=== PATIENT | female | born 1955 | race African-American/Black ===

== ENCOUNTER 2018-12-02 04:04 | Emergency (ER) | payer BC ==
--- NOTE | 2018-12-02 04:51 | XR ---
EXAM: XR Right Hip With Pelvis When Performed, 1 View CLINICAL HISTORY: pain TECHNIQUE: Frontal view of the right hip, with pelvis when performed. COMPARISON: No relevant prior studies available. FINDINGS: Bones/joints: Unremarkable. No acute fracture. No dislocation. Soft tissues: Unremarkable. IMPRESSION: No radiographic evidence of acute fracture or dislocation.
[2018-12-02] MEDS ORDERED: MORPHINE SULFATE 4 MG/ML SYRINGE IM STA (05:38)
[2018-12-02 06:46] VITALS: TEMP 98.1
--- NOTE | 2018-12-02 07:00 | XR ---
EXAM: XR Right Knee, 3 views CLINICAL HISTORY: pain TECHNIQUE: Three views of the right knee. COMPARISON: No relevant prior studies available. FINDINGS: Bones/joints: Unremarkable. No acute fracture. No dislocation. Soft tissues: Unremarkable. IMPRESSION: No radiographic evidence of acute fracture or dislocation. No significant arthritic changes.
--- NOTE | 2018-12-02 07:02 | XR ---
EXAM: XR Pelvis, 1 or 2 Views CLINICAL HISTORY: pain TECHNIQUE: Frontal view of the pelvis. COMPARISON: No relevant prior studies available. FINDINGS: Bones/joints: Degenerative changes in the lower lumbar spine. No acute fracture. No dislocation. Soft tissues: Pelvic calcifications are consistent with phleboliths. IMPRESSION: No acute fracture or dislocation.
--- NOTE | 2018-12-02 07:02 | XR ---
EXAM: XR Right Femur, 2 Views CLINICAL HISTORY: pain TECHNIQUE: Frontal and lateral views of the right femur. COMPARISON: No relevant prior studies available. FINDINGS: Bones/joints: Unremarkable. No acute fracture. No dislocation. Soft tissues: Unremarkable. IMPRESSION: No radiographic evidence of acute fracture.
--- NOTE | 2018-12-02 07:57 | ED ---
Lower Extremity Injury HPI - General Chief Complaint: Extremity Injury, Lower Stated Complaint: hip pain Time Seen by Provider: 12/02/18 04:10 Source: patient Mode of arrival: ambulatory Limitations: no limitations - History of Present Illness Initial Comments: The patient is a 63-year-old female who presents emergency Department with reported right thigh pain. She states the pain has been present for the past week. States it is worse with movement and better with rest. It is described as a sharp shooting sensation which radiates from the lateral aspect of her right hip down to the mid thigh. Denies any numbness or tingling in her lower extremities. Denies any weakness in her lower extremities. 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 She did see Dr. Jones in office who provided her with meloxicam. States she took it once it didn't help. She is not taking any other medications. She denies any fevers or chills. No blunt trauma to the area. Has been able to weight bear. Denies any lumbar back pain. No saddle anesthesia or bowel or bladder incontinence. There are no alleviating, precipitating or modifying factors - Related Data Previous Rx's Medication Instructions Recorded Hydrocodone/Acetaminophen [Almo 1 tab PO Q4HR PRN #18 tab 12/02/18 5-325] Allergies Allergy/AdvReac Type Severity Reaction Status Date / Time No Known Allergies Allergy Verified 12/02/18 07:58 Review of Systems ROS Statement: Those systems with pertinent positive or pertinent negative responses have been documented in the HPI. ROS Other: All systems not noted in ROS Statement are negative. Past Medical History Past Medical History: Hyperlipidemia History of Any Multi-Drug Resistant Organisms: None Reported Past Surgical History: Cholecystectomy, Hysterectomy Past Psychological History: No Psychological Hx Reported Smoking Status: Never smoker Past Alcohol Use History: Occasional Past Drug Use History: None Reported General Exam Limitations: no limitations General appearance: alert, in no apparent distress Head exam: Present: atraumatic, normocephalic, normal inspection Eye exam: Present: normal appearance, PERRL, EOMI. Absent: scleral icterus, conjunctival injection, periorbital swelling ENT exam: Present: normal exam, mucous membranes moist Neck exam: Present: normal inspection. Absent: tenderness, meningismus, lymphadenopathy Respiratory exam: Present: normal lung sounds bilaterally. Absent: respiratory distress, wheezes, rales, rhonchi, stridor Cardiovascular Exam: Present: regular rate, normal rhythm, normal heart sounds. Absent: systolic murmur, diastolic murmur, rubs, gallop, clicks GI/Abdominal exam: Present: soft, normal bowel sounds. Absent: distended, tenderness, guarding, rebound, rigid Extremities exam: Present: normal inspection, full ROM, tenderness (lateral thigh from hip to lateral knee), normal capillary refill, other (5/5 muscle strength in the bilateral lower extremities). Absent: pedal edema, joint swelling, calf tenderness Back exam: Present: normal inspection Neurological exam: Present: alert, oriented X3, CN II-XII intact Psychiatric exam: Present: normal affect, normal mood Skin exam: Present: warm, dry, intact, normal color. Absent: rash Course Vital Signs 12/02/18 12/02/18 12/02/18 04:06 06:40 08:15 Temperature 97.9 F 98.1 F Pulse Rate 84 67 69 Respiratory 18 16 18 Rate Blood Pressure 100/55 105/64 125/79 O2 Sat by Pulse 99 97 98 Oximetry Medical Decision Making - Medical Decision Making Upon arrival the patient is placed into room 10. A history and physical exam was performed. I did provide the patient with 4 mg of IM morphine. The patient is sent over for an x-ray of her pelvis, right hip, right femur and right knee. Upon return of the results I did discuss with the patient. No fracture seen at this time. The patient is able to weight bear. Reports that her pain is 2 out of 10. I did discuss diagnosis, differential and treatment options. I did recommend that the patient follow up with her primary care physician for further treatment options. The patient was be given follow up information for the orthopedic physician on-call. The patient is requesting something stronger for pain at home. I will provide her with a short course of Almo. She does sign an opiate start talking form. If she has any new or worsening symptoms she should return to the emergency room. The patient was discharged home in stable condition Disposition Clinical Impression: Thigh pain Disposition: HOME SELF-CARE Condition: Stable Instructions (If sedation given, give patient instructions): Leg Pain (ED) Additional Instructions: Please follow-up with her primary care doctor within 2-4 days. Return to the emergency room for any new or worsening symptoms. You may need to see an warehouse specialist Prescriptions: Hydrocodone/Acetaminophen [Almo 5-325] 1 tab PO Q4HR PRN #18 tab PRN Reason: Pain Is patient prescribed a controlled substance at d/c from ED?: Yes When asked, does pt state using other controlled substances?: No If prescribed controlled substance>3 days was MAPS reviewed?: Prescribed <3 Days If opioid is for acute pain is fill amount 7 days or less?: Yes If Rx opioid, was Start Talking consent form obtained?: Yes Referrals: Kaden Jones MD [Primary Care Provider] - 1-2 days Escobar Mancia DO [Doctor of Osteopathic Medicine] - 1-2 days Time of Disposition: 07:57
[2018-12-02 08:24] VITALS: BP 125/79; PULSE 69; RESP 18
== END 2018-12-02 08:15 | disposition home or self-care (01) ==
LOC: EC 04:04
DX: M79.651 Pain in right thigh (principal); E78.5 Hyperlipidemia, unspecified
CPT/HCPCS: 99283; 96372; 72170; 73502; 73552; 73562; J2270

== ENCOUNTER 2020-06-05 16:01 | Emergency (ER) | payer BC ==
[2020-06-05 16:15] VITALS: TEMP 99.5
[2020-06-05 19:56] LABS: Basophils % (A) 0 %; Eosinophils % (A) 0 %; HCT 37.8 % (34.0-46.0); HGB 11.9 gm/dL (11.4-16.0); Lymphocytes # (A) 1.1 k/uL (1.0-4.8); Lymphocytes % (A) 16 %; MCH 27.6 pg (25.0-35.0); MCHC 31.4 g/dL (31.0-37.0); MCV 87.8 fL (80.0-100.0); Mean Platelet Volume 6.7; Monocytes # (A) 0.2 k/uL (0-1.0); Monocytes % (A) 3 %; Neutrophils # (A) 5.5 k/uL (1.3-7.7); Neutrophils % (A) 80 %; Platelet Count 416 k/uL (150-450); RBC 4.31 m/uL (3.80-5.40); RDW 12.3 % (11.5-15.5); WBC 6.9 k/uL (3.8-10.6)
--- NOTE | 2020-06-05 19:57 | XR ---
EXAMINATION TYPE: XR chest 2V DATE OF EXAM: 06/05/2020 COMPARISON: NONE HISTORY: Fever and cough. TECHNIQUE: Frontal and lateral views of the chest are obtained. FINDINGS: There is mild patchy opacities in the bilateral mid to lower lungs. No pleural effusion, o r pneumothorax seen. The cardiac silhouette size is within normal limits. The osseous structures a re intact. IMPRESSION: Bilateral mild patchy opacities, concerning for infiltrates.
[2020-06-05 20:10] LABS: ALT 80 U/L (4-34); AST 84 U/L (14-36); African American GFR (CKD) >90 (>60 ml/min/1.73 sqM); Alkaline Phosphatase 102 U/L (38-126); Anion Gap 11 mmol/L; Blood Urea Nitrogen 16 mg/dL (7-17); Calcium 8.8 mg/dL (8.4-10.2); Carbon Dioxide 33 mmol/L (22-30); Chloride 97 mmol/L (98-107); Glucose 107 mg/dL (74-99); Non-African American GFR(CKD) 89 (>60 ml/min/1.73 sqM); Potassium 3.1 mmol/L (3.5-5.1); Sodium 141 mmol/L (137-145); Total Bilirubin 1.6 mg/dL (0.2-1.3); Total Protein 7.9 g/dL (6.3-8.2)
[2020-06-05 20:14] VITALS: BP 111/72; PULSE 104
[2020-06-05] MEDS ORDERED: POTASSIUM CHLORIDE ER 20 MEQ TAB.ER PO STA (20:38)
[2020-06-05] MEDS ORDERED: dexAMETHasone 4 MG TAB PO STA (20:39)
--- NOTE | 2020-06-05 20:41 | ED ---
General Adult HPI - General Chief complaint: Shortness of Breath Stated complaint: SOB Time Seen by Provider: 06/05/20 20:21 Source: patient Mode of arrival: wheelchair Limitations: no limitations - History of Present Illness Initial comments: Dictation was produced using [employer] dictation software. please excuse any grammatical, word or spelling errors. This patient was cared for during a federal and state declared state of emergency secondary to Covid 19 Chief Complaint: 64-year-old female presents with URI symptoms. History of Present Illness: 64-year-old female she has past medical history of dyslipidemia. Patient states she's had URI symptoms for more than 10 days. She is given prescription for azithromycin by an care physician 9 days ago. Patient states she is having congestion, shortness of breath and cough. She is also having fevers. She has not been tested for covid 19. She denies any significant comorbidities. The ROS documented in this emergency department record has been reviewed and confirmed by me. Those systems with pertinent positive or negative responses have been documented in the HPI. All other systems are other negative and/or noncontributory. PHYSICAL EXAM: General Impression: Alert and oriented x3, not in acute distress HEENT: Normocephalic atraumatic, extra-ocular movements intact, pupils equal and reactive to light bilaterally, mucous membranes moist. Cardiovascular: Heart regular rate and rhythm Chest: Able to complete full sentences, no retractions, no tachypnea Abdomen: abdomen soft, non-tender, non-distended, no organomegaly Musculoskeletal: Pulses present and equal in all extremities, no peripheral edema Motor: no focal deficits noted Neurological: CN II-XII grossly intact, no focal motor or sensory deficits noted Skin: Intact with no visualized rashes Psych: Normal affect and mood ED course: 64-year-old female with greater than 10 days of URI symptoms. Patient was seen and evaluated in triage macias. Vital signs upon arrival are within acceptable limits. Patient symptoms are concerning for Covid 19. Laboratory evaluation obtained. CBC unremarkable. Metabolic panel shows potassium 3.1. Rest metabolic panel is unremarkable. Coronal virus is positive. Patient is outside the window for monoclonal antibody administration. She is not hypoxic. Repeat oxygen level was 96% on room air. Patient not showing any significant signs of respiratory distress. Patient given oral potassium. She is given 1 dose of oral Decadron. She is stable for discharge. Return parameters discussed. Patient told to quarantine. She is advised to contact her primary care physician to manage her chronic virus on outpatient basis. Patient told to increase potassium-containing foods in her diet like bananas. EKG interpretation: Ventricular rate 102, sinus tachycardia, NH interval 134, QRS 70, QTc 437. No NH prolongation, no QTC prolongation, no ST or T-wave changes noted. Overall, this EKG is unremarkable - Related Data Previous Rx's Medication Instructions Recorded Hydrocodone/Acetaminophen [[place] 1 tab PO Q4HR PRN #18 tab 12/02/18 5-325] Allergies Allergy/AdvReac Type Severity Reaction Status Date / Time No Known Allergies Allergy Verified 06/05/20 16:15 Review of Systems ROS Statement: Those systems with pertinent positive or pertinent negative responses have been documented in the HPI. ROS Other: All systems not noted in ROS Statement are negative. Past Medical History Past Medical History: Hyperlipidemia History of Any Multi-Drug Resistant Organisms: None Reported Past Surgical History: Cholecystectomy, Hysterectomy Past Psychological History: No Psychological Hx Reported Smoking Status: Never smoker Past Alcohol Use History: Occasional Past Drug Use History: None Reported General Exam Limitations: no limitations Course Vital Signs 06/05/20 06/05/20 16:13 20:14 Temperature 99.5 F Pulse Rate 101 H 104 H Respiratory 18 18 Rate Blood Pressure 113/83 111/72 O2 Sat by Pulse 98 94 L Oximetry Medical Decision Making - Lab Data Result diagrams: 06/05/20 19:35 06/05/20 19:35 Lab Results 06/05/20 06/05/20 06/05/20 Range/Units 19:35 19:35 19:40 WBC 6.9 (3.8-10.6) k/uL RBC 4.31 (3.80-5.40) m/uL Hgb 11.9 (11.4-16.0) gm/dL Hct 37.8 (34.0-46.0) % MCV 87.8 (80.0-100.0) fL MCH 27.6 (25.0-35.0) pg MCHC 31.4 (31.0-37.0) g/dL RDW 12.3 (11.5-15.5) % Plt Count 416 (150-450) k/uL MPV 6.7 Neutrophils % 80 % Lymphocytes % 16 % Monocytes % 3 % Eosinophils % 0 % Basophils % 0 % Neutrophils # 5.5 (1.3-7.7) k/uL Lymphocytes # 1.1 (1.0-4.8) k/uL Monocytes # 0.2 (0-1.0) k/uL Eosinophils # 0.0 (0-0.7) k/uL Basophils # 0.0 (0-0.2) k/uL Sodium 141 (137-145) mmol/L Potassium 3.1 L (3.5-5.1) mmol/L Chloride 97 L (98-107) mmol/L Carbon Dioxide 33 H (22-30) mmol/L Anion Gap 11 mmol/L BUN 16 (7-17) mg/dL Creatinine 0.73 (0.52-1.04) mg/dL Est GFR (CKD-EPI)AfAm >90 (>60 ml/min/1.73 sqM) Est GFR (CKD-EPI)NonAf 89 (>60 ml/min/1.73 sqM) Glucose 107 H (74-99) mg/dL Calcium 8.8 (8.4-10.2) mg/dL Total Bilirubin 1.6 H (0.2-1.3) mg/dL AST 84 H (14-36) U/L ALT 80 H (4-34) U/L Alkaline Phosphatase 102 (38-126) U/L Total Protein 7.9 (6.3-8.2) g/dL Albumin 4.0 (3.5-5.0) g/dL Coronavirus (PCR) Detected A (Not Detectd) Disposition Clinical Impression: COVID-19, Hypokalemia Disposition: HOME SELF-CARE Condition: Good Instructions (If sedation given, give patient instructions): Viral Pneumonia (ED), Hypokalemia (ED) Additional Instructions: Today you were evaluated for symptoms consistent with upper respiratory infection. Today you tested positive for Covid 19. Your are stable for discharge, however it is instructed to to seek immediate medical attention especially if you develop worsening symptoms especially respiratory distress. If possible, try to obtain a pulse oximeter and monitor your oxygen at home. In the meantime please remain in quarantine for 14 days. For any other questions please contact Audra for here in emergency department or [facility] at [phone] Please increase potassium-containing foods in her diet including bananas. Potassium was slightly decreased at 3.1. This usually be corrected with increase oral intake of potassium. Is patient prescribed a controlled substance at d/c from ED?: No Referrals: Kaden Jones MD [Primary Care Provider] - 1-2 days Time of Disposition: 20:41
[2020-06-05 20:57] VITALS: RESP 19
== END 2020-06-05 21:00 | disposition home or self-care (01) ==
LOC: EC 16:01
DX: U07.1 COVID-19 (principal); E87.6 Hypokalemia; E78.5 Hyperlipidemia, unspecified
CPT/HCPCS: 36415; 93005; 80053; 85025; 87635; 71046; 99285; J8540

== ENCOUNTER → 2023-10-19 | Outpatient (CLI) | payer BC ==
--- NOTE | 2023-11-10 10:45 | MM ---
Reason for Exam: Screening (asymptomatic). Baseline mammogram. Patient History: Menarche at age 15. First Full-Term at age 24. Risk Values: Ilana 5 year model risk: 1.7%. NCI Lifetime model risk: 5.7%. Prior Study Comparison: Patient's first Mammogram. Tissue Density: There are scattered areas of fibroglandular density. Findings: Analyzed By CAD. Right breast: Asymmetry upper outer aspect middle depth 6.4 cm simple measuring 8 mm lateral aspect on CC view. Left breast: There is no suspicious group of microcalcifications or new suspicious mass. Overall Assessment: Incomplete: need additional imaging evaluation, BI-RAD 0 Management: Diagnostic Breast Ultrasound of the right breast. [facility] will attempt to contact patient to return for supplemental views and ultrasound if indicated. Patient should continue monthly self-breast exams. A clinical breast exam by your physician is recommended on an annual basis. This exam should not preclude additional follow-up of suspicious palpable abnormalities. Note on Ilana scores and lifetime risk: 1. A Ilana score greater than 3% is considered moderate risk. If this is the case, consider specialist referral to assess eligibility for a risk reducing agent. 2. If overall lifetime risk for the development of breast cancer is 20% or higher, the patient may qualify for future screening with alternating mammogram and breast MRI. Electronically signed and approved by: Sandro Montes De Oca DO
== END | disposition home or self-care (01) ==
LOC: RADMAMWWP 12:00
PROVIDERS: ATTEND Family Medicine
DX: Z12.31 Encounter for screening mammogram for malignant neoplasm of breast
CPT/HCPCS: 77063; 77067

== ENCOUNTER → 2023-11-16 | Outpatient (CLI) | payer BC ==
--- NOTE | 2023-11-16 09:39 | USB ---
Reason for Exam: Additional evaluation requested from abnormal screening. Patient History: Menarche at age 15. First Full-Term at age 24. Risk Values: Ilana 5 year model risk: 1.7%. NCI Lifetime model risk: 5.7%. Technique: Method: Targeted. Prior Study Comparison: 10/19/2023 Bilateral MG 3D screening mammo w/cad, [place]. Findings: The upper outer quadrant of the right breast, the axilla of the right breast and the retroareolar of the right breast were scanned. Technique utilized:US breast workup limited RT Image; Ultrasound imaging of: All 4 quadrants, the retroareolar region and axilla. Benign-appearing lymph node at 9:00 7 cm from the nipple. No evidence for organizing fluid collection or mass. Overall Assessment: Benign, BI-RAD 2 Management: Screening Mammogram of both breasts in 1 year. A clinical breast exam by your physician is recommended on an annual basis and results should be correlated with mammographic findings. This exam should not preclude additional follow-up of suspicious palpable abnormalities. Results were given to the patient verbally at the time of exam. Electronically signed and approved by: Sandro Montes De Oca DO
== END | disposition home or self-care (01) ==
LOC: RADUSWWP 08:56
PROVIDERS: ATTEND Family Medicine
DX: R92.8 Other abnormal and inconclusive findings on diagnostic imaging of breast (principal)